=== PATIENT | female | born 1980 | race Caucasian/White ===

== ENCOUNTER 2017-07-13 19:04 | Emergency (ER) | payer MEDICAID ==
[2017-07-13 19:12] VITALS: BP 157/96
== END 2017-07-13 20:59 | disposition left against medical advice (07) ==
LOC: ED 19:04
DX: R10.9 Unspecified abdominal pain (principal); Z53.21 Procedure and treatment not carried out due to patient leaving prior to being seen by health care provider
CPT/HCPCS: 99281

== ENCOUNTER 2021-06-14 12:35 | Observation (INO) ==
[2021-06-14 14:22] LABS: ABS Basophils 0.1 10^3/ul (0-0.2); ABS Eosinophils 0.2 10^3/ul (0-0.6); ABS Lymphocytes 2.8 10^3/ul (1.0-4.8); ABS Monocytes 0.9 10^3/ul (0-0.8); ABS Neutrophils 10.4 10^3/ul (1.5-7.7); Eosinophil % 1.2 %; Hematocrit 44 % (35-47); Hemoglobin 15.3 g/dL (12.0-16.0); Lymphocyte % 19.3 %; Mean Corpuscular HGB Conc 35 g/dL (31-36); Mean Corpuscular Hemoglobin 32 pg (27-31); Mean Corpuscular Volume 93 fL (80-97); Mean Platelet Volume 8.1 fL (7.4-10.4); Platelet Count 465 10^3/uL (150-450); Red Blood Count 4.75 10^6 /uL (3.70-4.87); Red Cell Distribution Width 13 % (10-15); White Blood Count 14.4 10^3/uL (3.5-10.8)
[2021-06-14 14:34] LABS: Albumin 4.5 g/dL (3.2-5.2); Albumin/Globulin Ratio 1.6 (1-3); Calcium 9.8 mg/dL (8.6-10.3); Globulin 2.8 g/dL (2-4); Total Protein 7.3 g/dL (6.4-8.9)
[2021-06-14 14:35] LABS: Troponin I 0.01 ng/mL (<0.03)
[2021-06-14 14:39] LABS: Potassium 4.2 mmol/L (3.5-5.0)
[2021-06-14 16:27] LABS: HDL Cholesterol 50.5 mg/dL
[2021-06-14] MEDS ORDERED: Morphine 2 MG/ML SYRINGE IV PRN (17:58)
[2021-06-14 18:13] LABS: Rapid COVID-19 Molecular Undetected (Undetected)
[2021-06-15 06:52] LABS: Hematocrit 42 % (35-47); Hemoglobin 14.3 g/dL (12.0-16.0); Mean Corpuscular HGB Conc 34 g/dL (31-36); Mean Corpuscular Hemoglobin 32 pg (27-31); Mean Corpuscular Volume 94 fL (80-97); Mean Platelet Volume 7.6 fL (7.4-10.4); Platelet Count 429 10^3/uL (150-450); Red Blood Count 4.49 10^6 /uL (3.70-4.87); Red Cell Distribution Width 13 % (10-15); White Blood Count 12.8 10^3/uL (3.5-10.8)
[2021-06-15 07:46] VITALS: BP 127/76
[2021-06-15] MEDS: Cholecalciferol (VIT D3) 1,000 unit TAB PO SCH ×2 (09:34→11:05)
== END 2021-06-15 15:27 | disposition home or self-care (01) ==
LOC: ED 12:35 → INTOOBSV 15:57 → EDHOLD 15:57 → MEDTELE 20:04
PROVIDERS: ADMIT Student in an Organized Health Care Education/Training Program; ATTEND Internal Medicine